=== PATIENT | male | born 1990 | race Caucasian/White ===

== ENCOUNTER 2018-01-08 17:45 | Observation (INO) | payer BC ==
[2018-01-08] MEDS ORDERED: EPINEPHrine 1 MG/ML INJ IM ONE ×3 (17:51→18:45)
[2018-01-08] MEDS ORDERED: methylPREDNISolone SOD SUCC 125 MG/2 ML VIAL IVP ONE (17:51)
[2018-01-08] MEDS ORDERED: RANITIDINE 50 MG/2 ML VIAL IVP ONE (17:51)
[2018-01-08] MEDS ORDERED: ONDANSETRON 4 MG/2 ML VIAL ONE (17:52)
--- NOTE | 2018-01-08 17:53 | EDPHY ---
H & P Time Seen by Provider: 01/08/18 17:50 HPI/ROS: CHIEF COMPLAINT: Allergic reaction HISTORY OF PRESENT ILLNESS: The patient is a 27-year-old man with a history of allergy to tree nuts. He ate an unknown sauce about an hour ago and began to developed hives and swollen upper lip. He took 50 of Benadryl but threw up. He then took another 50 of Benadryl and kept down. He denies swelling of his tongue or airway. He denies wheezing or shortness of breath. He does have a history of asthma. He is throwing up again here in the department Severity: Severe Modifying factors: Medications REVIEW OF SYSTEMS: Constitutional: denies: chills, fever, recent illness, recent injury EENTM: See HPI Respiratory: denies: cough, shortness of breath Cardiac: denies: chest pain, irregular heart rate, lightheadedness, palpitations Gastrointestinal/Abdominal: denies: abdominal pain, diarrhea, nausea, vomiting, blood streaked stools Genitourinary: denies: dysuria, frequency, hematuria, pain Musculoskeletal: denies: joint pain, muscle pain Skin: See HPI Neurological: denies: headache, numbness, paresthesia, tingling, dizziness, weakness Hematologic/Lymphatic: denies: blood clots, easy bleeding, easy bruising Immunologic/allergic: denies: HIV/AIDS, transplant 10 systems reviewed and negative except as noted EXAM: GENERAL: Severe distress HEAD: Atraumatic, normocephalic. EYES: Pupils equal round and reactive to light, extraocular movements intact, sclera anicteric, conjunctiva are normal. ENT: Slightly swollen upper lip, no swelling of tongue or throat. NECK: Normal range of motion, supple without lymphadenopathy or JVD. LUNGS: Breath sounds clear to auscultation bilaterally and equal. No wheezes rales or rhonchi. HEART: Regular rate and rhythm without murmurs, rubs or gallops. ABDOMEN: Soft, nontender, normoactive bowel sounds. No guarding, no rebound. No masses appreciated. BACK: No CVA tenderness, no spinal tenderness, step-offs or deformities EXTREMITIES: Normal range of motion, no pitting or edema. No clubbing or cyanosis. NEUROLOGICAL: Cranial nerves II through XII grossly intact. Normal speech, normal gait. 5/5 strength, normal movement in all extremities, normal sensation , normal reflexes PSYCH: Normal mood, normal affect. SKIN: Diffusely erythematous, no visible urticaria Source: Patient Exam Limitations: No limitations - Medical/Surgical History Hx Asthma: No Hx Chronic Respiratory Disease: No Hx Diabetes: No Hx Cardiac Disease: No Hx Renal Disease: No Hx Cirrhosis: No Hx Alcoholism: No Hx HIV/AIDS: No - Family History Significant Family History: No pertinent family hx - Social History Alcohol Use: Sober Drug Use: None Constitutional: Initial Vital Signs Temperature (C) 36.9 C 01/08/18 18:01 Heart Rate 92 01/08/18 18:01 Respiratory Rate 20 01/08/18 18:01 Blood Pressure 121/89 H 01/08/18 18:01 O2 Sat (%) 93 01/08/18 18:01 O2 Delivery Mode Room Air Allergies/Adverse Reactions: tree nut Allergy (Verified 01/08/18 18:05) Home Medications: Medication Instructions Recorded Paxil 01/08/18 Medical Decision Making ED Course/Re-evaluation: Patient is having an anaphylactic reaction. We are giving epinephrine, Benadryl , Solu-Medrol and Nexium. He also began vomiting again and nursing staff gave Zofran. 6:45 p.m. the patient's symptoms are returning. He has slight change of his voice. Swelling around his eyes and sinuses. I will give him another dose of epi and started an epinephrine drip and likely admit to the hospitalist. Patient is somewhat resistant to this. Discussed case with Dr. Ferrell who will admit to the ICU. Differential Diagnosis: Partial list of the Differential diagnosis considered include but were not limited to; anaphylaxis, infection and although unlikely based on the history and physical exam, I also considered burn, trauma. Critical Care Time: Critical care time spent by me, Dr. Vázquez exclusive with this patient was 45 minutes, exclusive of the PA time exclusive of procedures. The organ system that was at risk was cardiovascular and I gave IV fluids, medications, consultation and admission to prevent worsening of the patient's condition - Data Points Medications Given: Discontinued Medications Diphenhydramine HCl (Benadryl Injection) 25 mg IVP EDNOW ONE Stop: 01/08/18 17:52 Last Admin: 01/08/18 17:57 Dose: 25 mg Epinephrine HCl (Epinephrine) 0.3 mg IM EDNOW ONE Stop: 01/08/18 17:52 Last Admin: 01/08/18 17:54 Dose: 0.3 mg Epinephrine HCl (Epinephrine) 0.3 mg IM EDNOW ONE Stop: 01/08/18 18:46 Last Admin: 01/08/18 18:51 Dose: 0.3 mg Methylprednisolone Sodium Succinate (Solu-Medrol) 125 mg IVP EDNOW ONE Stop: 01/08/18 17:52 Last Admin: 01/08/18 17:54 Dose: 125 mg Ondansetron HCl (Zofran) 4 mg IVP EDNOW ONE Stop: 01/08/18 18:05 Last Admin: 01/08/18 18:05 Dose: 4 mg Ranitidine HCl (Zantac) 50 mg IVP EDNOW ONE Stop: 01/08/18 17:52 Last Admin: 01/08/18 17:59 Dose: 50 mg Departure - Departure Disposition: [facility] Inpatient Acute Clinical Impression: Acute anaphylaxis Condition: Critical Referrals: NONE *PRIMARY CARE P,. [Primary Care Provider] - As per Instructions
[2018-01-08] MEDS ORDERED: ONDANSETRON 4 MG/2 ML VIAL IVP ONE (18:04)
[2018-01-08] MEDS ORDERED: EPINEPHrine 1 MG in NS 250 ML IV ONE (18:45)
[2018-01-08 20:06] LABS: PLATELET COUNT 227 10^3/uL (150-400)
[2018-01-08] MEDS ORDERED: ACETAMINOPHEN 325 MG TAB PO PRN (20:17)
[2018-01-08] MEDS ORDERED: ALBUTEROL 60 PUFFS/8 GM MDI IH PRN (20:18)
--- NOTE | 2018-01-08 20:23 | PDGENHP ---
History and Physical - Chief Complaint facial swelling - History of Present Illness 27yo M with history of asthma here visiting from [place] who presents to ED after developing hives, nausea/vomiting, facial swelling after eating dinner. He has had a life-long allergy to tree nuts and typically develops hives and occasionally some lip swelling when he consumes these products. He and a friend went out to eat this evening and he subsequently developed diffuse skin redness/ hives along with non-bloody emesis. His friend thinks there was probably some nut in the sauce on his dish. He tried to take benadryl but vomited this up. He then developed lip and bisi-orbital swelling that prompted him to come in. He did not feel short of breath. He's never been hospitalized for this allergy. In the ED, he had stable vitals. He was given IV solumedrol, benadryl and a dose of epinephrine with initial improvement in his symptoms. However, approximately 30-45 minutes, his hives and facial swelling returned. He never had any respiratory compromise. At this point, it was determined that patient would be best suited with admission to the hospital which he was agreeable. Case discussed with ED physician Quan Vázquez. History Information - Allergies/Home Medication List Allergies/Adverse Reactions: tree nut Allergy (Verified 01/08/18 18:05) Home Medications: Albuterol [Proventil Inhaler HFA (*)] 1 - 2 puffs IH Q4H PRN 01/08/18 [Last Taken 01/08/18] PARoxetine CR [Paxil Cr 12.5mg (RX)] 12.5 mg PO DAILY 01/08/18 [Last Taken 01/08] I have personally reviewed and updated: family history, medical history, social history, surgical history - Past Medical History Additional medical history: asthma, seasonal allergies, depression, tree nut allergy - Surgical History Additional surgical history: none - Family History Additional family history: no known atopic diseases - Social History Smoking Status: Never smoked Alcohol Use: Rarely Drug Use: None Additional social history: visiting from [place], just got into [place] today and staying until next weekend Review of Systems Review of Systems: ROS: 10pt was reviewed & negative except for what was stated in HPI & below Physical Exam Physical Exam: Temp Pulse Resp BP Pulse Ox 36.8 C 75 20 116/75 100 01/08/18 19:28 01/08/18 20:15 01/08/18 20:15 01/08/18 20:15 01/08/18 19:28 Constitutional: no apparent distress, appears nourished, not in pain Eyes: PERRL, anicteric sclera, EOMI, other (periorbital edema, no conjunctival injection) Ears, Nose, Mouth, Throat: moist mucous membranes, hearing normal, ears appear normal, no oral mucosal ulcers, other (no obvious lip swelling, no oropharyngeal edema ) Cardiovascular: regular rate and rhythym, no murmur, rub, or gallop, No edema Respiratory: no respiratory distress, no rales or rhonchi, clear to auscultation , other (no stridor or wheezing) Gastrointestinal: normoactive bowel sounds, soft, non-tender abdomen, no palpable masses Skin: other (diffuse urticaria across torso/abdomen, arms, neck) Musculoskeletal: full muscle strength, no muscle tenderness, normal joint ROM, no joint effusions Neurologic: AAOx3 Psychiatric: interacting appropriately, not anxious, not encephalopathic, thought process linear Lab Data & Imaging Review 01/08/18 19:41 01/08/18 19:41 WBC 12.22 10^3/uL (3.80-9.50) H 01/08/18 19:41 RBC 4.52 10^6/uL (4.40-6.38) 01/08/18 19:41 Hgb 14.4 g/dL (13.7-17.5) 01/08/18 19:41 Hct 39.4 % (40.0-51.0) L 01/08/18 19:41 MCV 87.2 fL (81.5-99.8) 01/08/18 19:41 MCH 31.9 pg (27.9-34.1) 01/08/18 19:41 MCHC 36.5 g/dL (32.4-36.7) 01/08/18 19:41 RDW 11.9 % (11.5-15.2) 01/08/18 19:41 Plt Count 227 10^3/uL (150-400) 01/08/18 19:41 MPV 8.9 fL (8.7-11.7) 01/08/18 19:41 Neut % (Auto) 85.2 % (39.3-74.2) H 01/08/18 19:41 Lymph % (Auto) 10.8 % (15.0-45.0) L 01/08/18 19:41 [place] % (Auto) 3.2 % (4.5-13.0) L 01/08/18 19:41 Eos % (Auto) 0.2 % (0.6-7.6) L 01/08/18 19:41 Baso % (Auto) 0.2 % (0.3-1.7) L 01/08/18 19:41 Nucleat RBC Rel Count 0.0 % (0.0-0.2) 01/08/18 19:41 Absolute Neuts (auto) 10.42 10^3/uL (1.70-6.50) H 01/08/18 19:41 Absolute Lymphs (auto) 1.32 10^3/uL (1.00-3.00) 01/08/18 19:41 Absolute Monos (auto) 0.39 10^3/uL (0.30-0.80) 01/08/18 19:41 Absolute Eos (auto) 0.02 10^3/uL (0.03-0.40) L 01/08/18 19:41 Absolute Basos (auto) 0.02 10^3/uL (0.02-0.10) 01/08/18 19:41 Absolute Nucleated RBC 0.00 10^3/uL (0-0.01) 01/08/18 19:41 Immature Gran % 0.4 % (0.0-1.1) 01/08/18 19:41 Immature Gran # 0.05 10^3/uL (0.00-0.10) 01/08/18 19:41 Assessment & Plan Assessment: 27yo M with history of asthma here visiting from [place] who presents to ED after developing hives, nausea/vomiting, facial swelling after eating dinner. Plan: #Acute anaphylaxis: Manifested as vomiting, urticaria, facial swelling. No e/o airway compromise (stridor), respiratory distress, or hypotension/shock; however , his symptoms have been somewhat refractory to typical therapies in the ED. He has received IM epi x2, 125mg IV solumedrol, ranitidine, and benadryl. - Epinephrine gtt at 0.1 mcg/kg/min - If continues to have symptoms, will re-try steroids and anti-histamines - Closely monitor airway, hemodynamics - Should be given epi pen at discharge #[place]: No acute exacerbation. Albuterol PRN. #Depression: Continue home paroxetine. Diet: regular VTE ppx: SCDs Code: full Dispo: Admit under observation to ICU. If improved, can likely discharge tomorrow.
[2018-01-08] MEDS ORDERED: EPINEPHrine 8 MG in NS 250 ML IV SCH (20:45)
[2018-01-08] MEDS ORDERED: EPINEPHrine 1 MG in NS 250 ML IV PRN (21:00)
[2018-01-09] MEDS ORDERED: PARoxetine CR 12.5 MG TAB PO SCH (09:00)
--- NOTE | 2018-01-09 09:38 | HOSPPROG ---
Hospitalist Progress Note Assessment/Plan: 27 yo M w anaphylaxis sx resolved home today epi pen script see dc summary Subjective: symptoms resolved. anxious for dc Objective: Vital Signs Temp Pulse Resp BP Pulse Ox 37.4 C 67 13 129/80 H 94 01/09/18 06:37 01/09/18 06:37 01/09/18 06:37 01/09/18 00:00 01/09/18 06:37 Laboratory Results 01/08/18 19:41 01/08/18 19:41 01/08/18 01/09/18 01/10/18 05:59 05:59 05:59 Intake Total 750 Balance 750 - Physical Exam Constitutional: no apparent distress, appears nourished Eyes: PERRL, anicteric sclera Ears, Nose, Mouth, Throat: moist mucous membranes, hearing normal Cardiovascular: regular rate and rhythym, no murmur, rub, or gallop Respiratory: no respiratory distress, no rales or rhonchi Gastrointestinal: normoactive bowel sounds, soft, non-tender abdomen Genitourinary: No balderrama in urethra Skin: warm, normal color Musculoskeletal: full muscle strength, no muscle tenderness Neurologic: AAOx3 ICD10 Worksheet Patient Problems: Problems Problem Status Onset Acute anaphylaxis Acute
[2018-01-09 09:51] VITALS: BP 117/80
--- NOTE | 2018-01-09 10:15 | GDS ---
DISCHARGE DIAGNOSES: 1. Anaphylaxis, now resolved. 2. Hyperkalemia. Please see admission history and physical by Dr. Rodger Ferrell. The patient has a known tree nut a llergy. He suspects he was exposed to this in a sauce. He presented to the ER with symptoms of some lip swelling and hives and urticaria. He received an epi drip briefly overnight that has been disco ntinued. The patient feels his face is back to normal and certainly looks normal to me. He does not have stridor. His lungs are clear. He does not have a rash on his skin. He is discharged home wit h a prescription for EpiPen. /[id number]/MODL
== END 2018-01-09 09:55 | disposition home or self-care (01) ==
LOC: F2N 20:06
PROVIDERS: ADMIT Internal Medicine; ATTEND Internal Medicine
DX: T78.05XA Anaphylactic reaction due to tree nuts and seeds, initial encounter (principal); E78.5 Hyperlipidemia, unspecified
CPT/HCPCS: 96372; 96374; 96375; 99291; G0378; J0171; J1200; J2405; J2780; J2930